=== PATIENT | male | born 1930 | race Caucasian/White ===

== ENCOUNTER 2017-09-07 23:53 | Emergency (ER) | payer MEDICARE, MEDICAID ==
[~2017-09-07] VITALS: Ht 167.6 cm; Wt 65.8 kg
--- NOTE | 2017-09-08 00:14 | NUR ---
BJORN 89 FROM HOME C/O NOSE BLEED X "COUPLE HOURS" PT AMBULATORY TO ER BED 4. RR EVEN AND UNLABORED. NO SOB NOTED. NO NVD AT THIS TIME. PT PLACED ON MONITOR WAITING FOR MD GUZMÁN.
[2017-09-08] MEDS ORDERED: OXYMETAZOLINE HCL NASAL SPRAY 30 ML BOTTLE NS ONE ×2 (00:42→03:30)
--- NOTE | 2017-09-08 00:50 | NUR ---
AT BEDSIDE FOR EVAL.
[2017-09-08] MEDS ORDERED: PHENYLEPHRINE 0.5% NASAL SPRAY 15 ML BOTTLE NS ONE (01:00)
[2017-09-08 01:05] LABS: BASOPHILS # (AUTO) 0.1 /CMM (0.0-0.2); EOSINOPHILS # (AUTO) 0.3 /CMM (0.0-0.7); EOSINOPHILS % (AUTO) 2.9 % (0.0-6.0); HEMATOCRIT 42 % (39-51); HEMOGLOBIN 13.9 g/dL (13.5-17.5); LYMPHOCYTES # (AUTO) 2.2 /CMM (0.8-4.8); LYMPHOCYTES % (AUTO) 22.8 % (20.0-44.0); MEAN CORPUSCULAR HEMOGLOBIN 29 PG (26.0-33.0); MEAN CORPUSCULAR HGB CONC 33 g/dl (31.0-36.0); MEAN CORPUSCULAR VOLUME 87 fL (80-96); MONOCYTES # (AUTO) 0.5 /CMM (0.1-1.30); MONOCYTES % (AUTO) 5.1 % (2.0-12.0); NEUTROPHILS # (AUTO) 6.7 /CMM (1.8-8.9); NEUTROPHILS % (AUTO) 68.2 % (43.0-81.0); PLATELET COUNT (AUTO) 123 /CMM (150-450); RDW COEFFICIENT OF VARIATION 15.1 (11.5-15.0); RED BLOOD CELL COUNT(AUTO) 4.77 MIL/uL (4.5-6.0); WHITE BLOOD COUNT (AUTO) 9.8 K/uL (4.3-11.0)
--- NOTE | 2017-09-08 01:10 | NUR ---
AFRIN GIVEN TO MD AT BEDSIDE.
[2017-09-08 01:19] LABS: CALCIUM, SERUM 8.5 mg/dL (8.5-10.1); CARBON DIOXIDE 26 mmol/L (21-32); CHLORIDE 103 mmol/L (98-107); CREATININE 1.2 mg/dL (0.6-1.3); GLUCOSE 95 mg/dL (74-106); INR 1.11 (0.87-1.13); POTASSIUM 4.1 mmol/L (3.5-5.1); SODIUM SERUM 137 mmol/L (136-145); UREA NITROGEN, BLOOD 26 mg/dL (7-18)
[2017-09-08 01:25] LABS: ALANINE AMINOTRANSFERASE 31 U/L (12-78); ALBUMIN 3.3 g/dL (3.4-5.0); ALKALINE PHOSPHATASE 73 U/L (46-116); ASPARTATE AMINOTRANSFERASE 24 U/L (15-37); BILIRUBIN,TOTAL 0.5 mg/dL (0.2-1.0); TOTAL PROTEIN, SERUM 7.5 g/dL (6.4-8.2)
--- NOTE | 2017-09-08 02:40 | NUR ---
Patient discharged to home in stable condition. Written and verbal after care instructions given. Patient verbalizes understanding of instruction. Patient ambulatory with a steady gait.
--- NOTE | 2017-09-08 02:55 | NUR ---
PT GOT UP TO LEAVE ER AND NOSEBLEED STARTED AGAIN. MD MADE AWARE.
--- NOTE | 2017-09-08 03:05 | NUR ---
PATSY AVELAR PLACED AT BEDSIDE FOR
[2017-09-08] MEDS ORDERED: HYDROCODONE/APAP 5/325MG 1 EACH TABLET ONE (03:26)
[2017-09-08] MEDS ORDERED: HYDROCODONE/APAP 5/325MG 1 EACH TABLET PO ONE (03:30)
[2017-09-08 05:09] VITALS: BP 143/79
--- NOTE | 2017-09-08 05:10 | NUR ---
NO BLEEDING NOTED. CALLED INTERPETER TO9 RELAY DISCHARGE INSTRUCTIONS TO PATIENT AND . Patient discharged to home in stable condition. Written and verbal after care instructions given. Patient verbalizes understanding of instruction. Patient ambulatory with a steady gait.
== END 2017-09-08 05:14 | disposition home or self-care (01) ==
LOC: ER 23:56
DX: R04.0 Epistaxis (principal); Z95.2 Presence of prosthetic heart valve; Z94.0 Kidney transplant status
CPT/HCPCS: 30901; 36415; 80053; 85025; 85610; 85730; 99284; A4606; Z7610